=== PATIENT | male | born 1995 | race Caucasian/White ===

== ENCOUNTER 2024-11-16 14:15 | Emergency (ER) | payer OTHER ==
[2024-11-16 14:22] VITALS: BP 150/83; PULSE 74; RESP 18; TEMP 98.1; BMI 27.0
[2024-11-16 16:08] LABS: HCV DIAGNOSTIC IN-HOUSE W/RFLX NON-REACTIVE (NONREACTIVE)
[2024-11-16 16:09] LABS: HIV INTERPRETATION NEGATIVE (NEGATIVE)
== END 2024-11-16 15:00 | disposition home or self-care (01) ==
LOC: JERFT 14:15
DX: S71.132A Puncture wound without foreign body, left thigh, initial encounter (principal); W46.0XXA Contact with hypodermic needle, initial encounter; Z77.21 Contact with and (suspected) exposure to potentially hazardous body fluids
CPT/HCPCS: 36415; 86803; 87389; 99283-25

== ENCOUNTER 2025-02-04 15:24 | Emergency (ER) | payer BC, OTHER ==
[2025-02-04 15:31] VITALS: TEMP 98.2; BMI 27.0
[2025-02-04 16:11] LABS: ABSOLUTE IMMATURE GRANULOCYTES 0.02 x10^3/uL (0.0-0.031); BASOPHILS # 0.04 x10^3/uL (0.01-0.08); EOSINOPHIL % 1.0 % (0.8-7.0); EOSINOPHILS # 0.07 x10^3/uL (0.04-0.54); MCHC 32.7 g/dl (32.3-36.5); MEAN CELL VOLUME 82.8 fl (79.0-92.2); MEAN PLT VOLUME 9.3 fl (9.4-12.4); MONOCYTE # 0.56 x10^3/uL (0.30-0.82); MONOCYTE % 7.7 % (5.3-12.2); RDW 11.3 % (11.9-15.3)
[2025-02-04] MEDS: SODIUM CHLORIDE 0.9% 500 ML INFUS.BAG IV ONE (16:26)
[2025-02-04 16:39] LABS: GLUCOSE,RANDOM 95.0 mg/dL (74-106); TOT PROT 7.7 g/dl (6.4-8.2)
[2025-02-04 16:40] LABS: CO2 28.0 mmol/L (21-32)
[2025-02-04 16:42] LABS: ALK PHOS 77.0 U/L (40-150)
[2025-02-04 16:45] LABS: CREATININE 1.1 mg/dL (0.55-1.3); SGOT/AST 27.0 U/L (5-34); SGPT/ALT 30.0 U/L (0-55)
[2025-02-04 17:02] LABS: HCV DIAGNOSTIC IN-HOUSE W/RFLX NON-REACTIVE (NONREACTIVE); HIV INTERPRETATION NEGATIVE (NEGATIVE)
[2025-02-04] MEDS: LACTATED RINGERS SOLUTION 1000 ML INFUS.BAG IV ONE (17:37)
[2025-02-04 19:47] VITALS: BP 145/77; PULSE 76; RESP 16
== END 2025-02-04 20:35 | disposition home or self-care (01) ==
LOC: JER 15:24
DX: R55 Syncope and collapse (principal); R42 Dizziness and giddiness
CPT/HCPCS: 36415; 70450-TC; 71046-TC-FY; 80053; 83735; 84439; 84443; 84484; 85025; 86803; 87389; 87637-QW